=== PATIENT | male | born 1940 | race Caucasian/White ===

== ENCOUNTER 2022-08-29 22:44 | Emergency (ER) | payer OTHER, MEDICARE, BC ==
[2022-08-29 23:37] LABS: ANION GAP 11.7 meq/L (7-15)
[2022-08-29] MEDS ORDERED: Sodium Chloride 0.9% 1,000 ML IV ONE (23:45)
[2022-08-29] MEDS ORDERED: Iopamidol 612 MG/ML 100 ML Bottle IVPUSH STA (23:48)
[2022-08-29] MEDS ORDERED: Morphine 2 MG/ML SYRINGE IVPUSH ONE (23:50)
[2022-08-29] MEDS ORDERED: Sodium Chloride 0.9% 10 ML Syringe FLUSH PRN (23:51)
[2022-08-29] MEDS ORDERED: Ondansetron 4 MG/2 ML SDV IVPUSH ONE (23:51)
[2022-08-30] MEDS ORDERED: Morphine 2 MG/ML SYRINGE IVPUSH ONE (01:17)
[2022-08-30] MEDS ORDERED: Ondansetron 4 MG/2 ML SDV IVPUSH ONE (01:17)
[2022-08-30] MEDS ORDERED: Sodium Chloride 0.9% 500 ML IV SCH (01:30)
[2022-08-30] MEDS: cefTRIAXone 1 GM in Sodium Chloride 0.9% 100 ML IV ONE (01:37)
[2022-08-30] MEDS: metroNIDAZOLE/Normal Saline 500 MG in Premix Bag 1 BAG IV ONE (01:39)
== END 2022-08-30 02:58 ==
LOC: LL.ED 22:44
DX: K57.32 Diverticulitis of large intestine without perforation or abscess without bleeding (principal); I10 Essential (primary) hypertension; E11.9 Type 2 diabetes mellitus without complications; Z88.8 Allergy status to other drugs, medicaments and biological substances; Z88.0 Allergy status to penicillin; Z79.899 Other long term (current) drug therapy
CPT/HCPCS: 36415; 74019; 74176; 80053; 81001; 82150; 83605; 83690; 85025; 96365; 96367; 99284; 99284-25; J0696; J3490

== ENCOUNTER 2023-07-31 04:16 | Emergency (ER) | payer OTHER, MEDICARE, BC ==
[2023-07-31] MEDS ORDERED: Sodium Chloride 0.9% 10 ML Syringe FLUSH PRN (04:25)
[2023-07-31 04:28] LABS: BASOPHILS ABSOLUTE AUTO 0.03 K/uL (0.00-0.20); BASOPHILS PERCENT AUTO 0.5 % (0.0-2.0); EOSINOPHILS ABSOLUTE AUTO 0.15 K/uL (0.00-0.50); EOSINOPHILS PERCENT AUTO 2.6 % (0.0-5.0); HEMATOCRIT 34.4 % (39.0-49.0); HEMOGLOBIN 10.7 g/dL (13.1-16.8); LYMPHOCYTES ABSOLUTE AUTO 1.52 K/uL (0.50-3.50); MEAN CORPUSCULAR HEMOGLOBIN 27.4 pg (28.2-33.3); MEAN CORPUSCULAR HGB CONC 31.1 g/dL (31.7-36.0); MONOCYTES ABSOLUTE AUTO 1.02 K/uL (0.00-1.00); MONOCYTES PERCENT AUTO 17.4 % (2.0-14.0); NEUTROPHILS ABSOLUTE AUTO 3.13 K/uL (1.40-7.00); NEUTROPHILS PERCENT AUTO 53.5 % (45.0-80.0); PLATELET COUNT,PLT 173 K/uL (150-350); RED BLOOD CELL COUNT 3.91 M/uL (4.33-5.41); RED CELL DISTRIBUTION WIDTH 14.2 % (11.2-14.1); WHITE BLOOD CELL COUNT,WBC 5.9 K/uL (4.0-10.2)
[2023-07-31 04:52] LABS: ALBUMIN 3.3 g/dL (3.4-5.0); ANION GAP 9.9 meq/L (7-15); BILIRUBIN TOTAL 0.7 mg/dL (0.2-1.0); CARBON DIOXIDE,CO2 32.4 mmol/L (21.0-32.0); CREATININE 1.16 mg/dL (0.51-1.17); EST CRCL DRUG DOSING (CG) 48.32 mL/min; MAGNESIUM 1.8 mg/dL (1.8-2.4); POTASSIUM,K 4.3 mmol/L (3.5-5.1); PROTEIN TOTAL,TP 6.9 g/dL (6.4-8.2)
[2023-07-31] MEDS ORDERED: Iopamidol 755 Mg/ML 100 ML Bottle IVPUSH ONE (05:07)
[2023-07-31 05:20] LABS: CORONAVIRUS COVID-19 NAA NEGATIVE (NEGATIVE); INFLUENZA A NAA NEGATIVE (NEGATIVE); INFLUENZA B NAA NEGATIVE (NEGATIVE); RESPIRATORY SYNCYTIAL VIR NAA NEGATIVE (NEGATIVE)
== END 2023-07-31 08:05 ==
LOC: LL.ED 04:16
DX: Z95.810 Presence of automatic (implantable) cardiac defibrillator (principal); I10 Essential (primary) hypertension; J44.9 Chronic obstructive pulmonary disease, unspecified; E11.9 Type 2 diabetes mellitus without complications; Z79.84 Long term (current) use of oral hypoglycemic drugs; Z79.899 Other long term (current) drug therapy; Z88.0 Allergy status to penicillin; Z88.8 Allergy status to other drugs, medicaments and biological substances
CPT/HCPCS: 0241U; 36415; 71045; 71275; 80053; 83605; 83735; 83880; 84484; 85025; 85379; 93005; 93010; 99284; 99285; Q9967

== ENCOUNTER 2024-11-23 14:02 | Inpatient (IN) | payer OTHER, MEDICARE, BC ==
[2024-11-23] MEDS: Lactated Ringers 1,000 ML IV ONE (14:25)
[2024-11-23] MEDS: Lidocaine 2% HCl 11 ML Jelly Filled Syringe TOP ONE (14:35)
[2024-11-23 14:39] LABS: BASOPHILS ABSOLUTE AUTO 0.04 K/uL (0.00-0.20); BASOPHILS PERCENT AUTO 0.2 % (0.0-2.0); EOSINOPHILS ABSOLUTE AUTO 0.02 K/uL (0.00-0.50); EOSINOPHILS PERCENT AUTO 0.1 % (0.0-5.0); HEMATOCRIT 37.6 % (39.0-49.0); HEMOGLOBIN 10.8 g/dL (13.1-16.8); IMMATURE GRAN ABSOLUTE AUTO 0.44 10^3/uL (0.00-0.04); IMMATURE GRAN PERCENT AUTO 2.4 % (0.0-0.4); LYMPHOCYTES ABSOLUTE AUTO 3.54 K/uL (0.50-3.50); LYMPHOCYTES PERCENT AUTO 19.1 % (10.0-50.0); MEAN CORPUSCULAR HEMOGLOBIN 28.5 pg (28.2-33.3); MEAN CORPUSCULAR HGB CONC 28.7 g/dL (31.7-36.0); MEAN CORPUSCULAR VOLUME 99.2 fL (84.0-98.0); MONOCYTES ABSOLUTE AUTO 1.19 K/uL (0.00-1.00); MONOCYTES PERCENT AUTO 6.4 % (2.0-14.0); NEUTROPHILS ABSOLUTE AUTO 13.31 K/uL (1.40-7.00); NEUTROPHILS PERCENT AUTO 71.8 % (45.0-80.0); PLATELET COUNT,PLT 238 K/uL (150-350); RED BLOOD CELL COUNT 3.79 M/uL (4.33-5.41); RED CELL DISTRIBUTION WIDTH 13.6 % (11.2-14.1); WHITE BLOOD CELL COUNT,WBC 18.5 K/uL (4.0-10.2)
[2024-11-23] MEDS: Iopamidol 755 Mg/ML 100 ML Bottle ONE (14:44)
[2024-11-23 14:56] LABS: INR 1.3 (0.9-1.1)
[2024-11-23 15:10] LABS: ALANINE AMINOTRANSFERASE,ALT 10 U/L (12-78); ALBUMIN 3.9 g/dL (3.4-5.0); ALKALINE PHOSPHATASE 74 IU/L (46-116); ASPARTATE AMNIOTRANSFERASE,AST 15 U/L (15-37); BILIRUBIN TOTAL 0.5 mg/dL (0.2-1.0); CALCIUM 10.4 mg/dL (8.5-10.1); CHLORIDE,CL 103 mmol/L (98-107); GLUCOSE RANDOM 176 mg/dL (70-99); MAGNESIUM 2.7 mg/dL (1.8-2.4); PRO B-TYPE NATRIUR PEPT,BNPPRO 10351 pg/mL (0-125); PROTEIN TOTAL,TP 7.6 g/dL (6.4-8.2); SODIUM,NA 144 mmol/L (136-145)
[2024-11-23] MEDS: Cefepime 2 GM Vial IVPUSH ONE (15:11)
[2024-11-23 15:21] LABS: POTASSIUM,K 6.6 mmol/L (3.5-5.1)
[2024-11-23 15:22] LABS: ANION GAP 42.2 meq/L (7-15); BLOOD UREA NITROGEN,BUN 90 mg/dL (7-18); CARBON DIOXIDE,CO2 5.4 mmol/L (21.0-32.0); CREATININE 11.19 mg/dL (0.51-1.17); ESTIMATED GFR 4 mL/min (>=60)
[2024-11-23] MEDS: Lactated Ringers 1,000 ML IV SCH (15:30)
[2024-11-23] MEDS: Calcium Gluconate 10% 1 GM/10 ML SDV IVPUSH ONE (15:44)
[2024-11-23] MEDS: Cefepime 2 GM Vial ONE (16:02)
[2024-11-23] MEDS: Lidocaine 2% HCl 11 ML Jelly Filled Syringe ONE (17:18)
[2024-11-23] MEDS ORDERED: LORazepam 2 MG/ML SDV IVPUSH PRN (19:04)
[2024-11-23] MEDS: Morphine 2 MG/ML SYRINGE IVPUSH PRN (19:30)
[2024-11-23] MEDS: Sodium Chloride 0.9% 10 ML Syringe FLUSH PRN (20:16)
[2024-11-23] MEDS: Atropine 1% Ophth Soln 5 ML Bottle SL PRN (23:16)
== END 2024-11-24 05:20 | disposition expired | DRG 951 ==
LOC: LL.ED 14:02 → LL.MS 17:45
PROVIDERS: ADMIT Physician Assistant; ATTEND Physician Assistant
DX: Z51.5 Encounter for palliative care (principal); A41.9 Sepsis, unspecified organism; R65.20 Severe sepsis without septic shock; F02.83 Dementia in other diseases classified elsewhere, unspecified severity, with mood disturbance; F02.84 Dementia in other diseases classified elsewhere, unspecified severity, with anxiety; Z66 Do not resuscitate; H91.90 Unspecified hearing loss, unspecified ear; I10 Essential (primary) hypertension; J44.9 Chronic obstructive pulmonary disease, unspecified; R41.82 Altered mental status, unspecified; K59.09 Other constipation; K21.9 Gastro-esophageal reflux disease without esophagitis; N40.0 Benign prostatic hyperplasia without lower urinary tract symptoms; M54.2 Cervicalgia; G89.29 Other chronic pain; G30.9 Alzheimer's disease, unspecified; E11.9 Type 2 diabetes mellitus without complications; Z88.5 Allergy status to narcotic agent; Z88.0 Allergy status to penicillin; Z88.8 Allergy status to other drugs, medicaments and biological substances; Z79.899 Other long term (current) drug therapy; Z79.84 Long term (current) use of oral hypoglycemic drugs; Z95.0 Presence of cardiac pacemaker; Z98.49 Cataract extraction status, unspecified eye; Z98.890 Other specified postprocedural states; Z90.49 Acquired absence of other specified parts of digestive tract
CPT/HCPCS: 36415; 70450; 71250; 74176; 80053; 83605; 83735; 83880; 84484; 85025; 85610; 87040; 87428-QW; 93005; 93010; 96361; 96374; 96375; 99223; 99238; 99285-25; A9270-GY; J0612; J0692; J2270; J7120